=== PATIENT | female | born 1995 | race African-American/Black ===

== ENCOUNTER 2017-03-13 21:14 | Emergency (ER) | payer SELFPAY ==
[~2017-03-13] VITALS: Ht 154.9 cm; Wt 55.0 kg
[2017-03-13 21:16] VITALS: BP 109/77; PULSE 80; RESP 16; TEMP 98.5; O2SAT 100
[2017-03-13] MEDS ORDERED: SODIUM CHLOR 0.9% 1000 ML INJ 1,000 ML IV ONE (23:45)
[2017-03-13] MEDS ORDERED: ONDANSETRON HCL 4 MG/2 ML VIAL IV PUSH ONE (23:45)
--- NOTE | 2017-03-14 00:06 | RADRPT ---
EXAM DATE/TIME: 03/13/2017 23:44 [facility] COMPARISON: No previous studies available for comparison. INDICATIONS : Syncope post hit in head with volleyball. MEDICAL HISTORY : None. SURGICAL HISTORY : None. ENCOUNTER: Initial ACUITY: 1 day PAIN SCORE: 0/10 LOCATION: Bilateral chest FINDINGS: A single view of the chest demonstrates the lungs to be symmetrically aerated without evidence of mas s, infiltrate or effusion. The cardiomediastinal contours are unremarkable. Osseous structures are intact. CONCLUSION: Normal one view chest x-ray. Orion Clinton MD on March 14, 2017 at 0:04 Board Certified Radiologist. This report was verified electronically.
--- NOTE | 2017-03-14 00:10 | PD ---
HPI Chief Complaint: Headache Time Seen by Provider: 23:35 Travel History International Travel<30 days: No Contact w/Intl Traveler<30days: No Traveled to known affect area: No History of Present Illness HPI 22-year-old female here for evaluation of headache, dizziness, nausea, and a syncopal episode. The patient reports that she had a headache yesterday described as a pressure. She was then hit in the head with a volleyball. She did not lose consciousness after this head trauma. She states she took ibuprofen with improvement in head pain, however she persistently felt nauseous and lightheaded throughout the day today. This evening while at band practice she had a syncopal episode. She did not sustain any injuries from this episode. She reports history of syncopal episodes in high school from low blood pressure. She does not believe she is . No fevers or recent illness. No known history of cardiac disease. Currently she has moderate diffuse/throbbing head pain. No paresthesias or motor deficits. No neck pain. PFSH Past Medical History Anemia: Yes Immunizations Current: Yes Tetanus Vaccination: < 5 Years ?: Not LMP: 03/08/2017 Past Surgical History Surgical History: No Previous Surgery Social History Alcohol Use: No Tobacco Use: No Substance Use: No Allergies-Medications (Allergen,Severity, Reaction): Coded Allergies: No Known Allergies (Unverified , 03/13/17) Reported Meds & Prescriptions Reported Meds & Active Scripts Active Macrobid (Nitrofurantoin Monoh/Nitrofur Macro) 100 Mg Cap 100 Mg PO BID 5 Days Review of Systems Except as stated in HPI: all other systems reviewed are Neg Physical Exam Narrative GENERAL: Well-developed, well-nourished, awake, alert, GCS 15, no apparent distress. SKIN: Focused skin assessment warm/dry. HEAD: Atraumatic. Normocephalic. EYES: Pupils equal and round. No scleral icterus. No injection or drainage. ENT: Mucous membranes pink and moist. NECK: Trachea midline. No JVD. No midline cervical spinous step-off or tenderness. CARDIOVASCULAR: Regular rate and rhythm. No murmur appreciated. RESPIRATORY: No accessory muscle use. Clear to auscultation. Breath sounds equal bilaterally. GASTROINTESTINAL: Abdomen soft, non-tender, nondistended. MUSCULOSKELETAL: No obvious deformities. No clubbing. No cyanosis. No edema. NEUROLOGICAL: Awake and alert. No obvious cranial nerve deficits. Motor grossly within normal limits. Normal speech. No focal deficits. PSYCHIATRIC: Appropriate mood and affect; insight and judgment normal. Data Data Last Documented VS Vital Signs Date Time Temp Pulse Resp B/P (MAP) Pulse Ox O2 Delivery O2 Flow Rate FiO2 03/14/17 01:08 18 97 Room Air 03/13/17 21:16 98.5 80 Orders Orders Electrocardiogram (03/13/17 23:37) Basic Metabolic Panel (Bmp) (03/13/17 23:37) Ed Urine Pregnancytest Poc (03/13/17 23:37) Complete Blood Count With Diff (03/13/17 23:37) Urinalysis - C+S If Indicated (03/13/17 23:37) Chest, Single Ap (03/13/17 23:37) Ct Brain W/O Iv Contrast(Rout) (03/13/17 23:37) Ecg Monitoring (03/13/17 23:37) Iv Access Insert/Monitor (03/13/17 23:37) Oximetry (03/13/17 23:37) Ondansetron Inj (Zofran Inj) (03/13/17 23:45) Sodium Chlor 0.9% 1000 Ml Inj (Ns 1000 M (03/13/17 23:45) Urine Culture (03/14/17 00:10) Nitrofurantoin Monohyd Macrocr (Macrobid (03/14/17 01:00) Labs Laboratory Tests Test 03/14/17 00:10 White Blood Count 5.5 TH/MM3 Red Blood Count 5.37 MIL/MM3 Hemoglobin 14.7 GM/DL Hematocrit 43.9 % Mean Corpuscular Volume 81.8 FL Mean Corpuscular Hemoglobin 27.3 PG Mean Corpuscular Hemoglobin Concent 33.4 % Red Cell Distribution Width 16.2 % Platelet Count 278 TH/MM3 Mean Platelet Volume 9.3 FL Neutrophils (%) (Auto) 46.4 % Lymphocytes (%) (Auto) 44.1 % Monocytes (%) (Auto) 7.2 % Eosinophils (%) (Auto) 1.8 % Basophils (%) (Auto) 0.5 % Neutrophils # (Auto) 2.6 TH/MM3 Lymphocytes # (Auto) 2.4 TH/MM3 Monocytes # (Auto) 0.4 TH/MM3 Eosinophils # (Auto) 0.1 TH/MM3 Basophils # (Auto) 0.0 TH/MM3 CBC Comment DIFF FINAL Differential Comment Urine Color LIGHT-YELLOW Urine Turbidity CLEAR Urine pH 6.5 Urine Specific [place] 1.013 Urine Protein NEG mg/dL Urine Glucose (UA) NEG mg/dL Urine Ketones NEG mg/dL Urine Occult Blood TRACE Urine Nitrite NEG Urine Bilirubin NEG Urine Urobilinogen LESS THAN 2.0 MG/DL Urine Leukocyte Esterase SMALL Urine RBC LESS THAN 1 /hpf Urine WBC 3 /hpf Urine Squamous Epithelial Cells 3 /hpf Urine Bacteria MOD /hpf Urine Hyaline Casts 1 /lpf Microscopic Urinalysis Comment CULTURE INDICATED Blood Urea Nitrogen 13 MG/DL Creatinine 0.84 MG/DL Random Glucose 83 MG/DL Calcium Level 9.3 MG/DL Sodium Level 137 MEQ/L Potassium Level 3.6 MEQ/L Chloride Level 102 MEQ/L Carbon Dioxide Level 27.2 MEQ/L Anion Gap 8 MEQ/L Estimat Glomerular Filtration Rate 105 ML/MIN [facility] Medical Decision Making Medical Screen Exam Complete: Yes Emergency Medical Condition: Yes Interpretation(s) EKG: Sinus, rate 53, normal axis, normal intervals, no acute ischemic abnormality. Differential Diagnosis Syncope, dysrhythmia, head injury, concussion, intracranial trauma, metabolic abnormality Narrative Course Vital signs show heart rate 80, blood pressure 109/77, pulse ox 100% on room air , oral temp of 98.5F. CBC: WBC 5.5, hemoglobin 14.7, hematocrit 43.9, platelets 278. BMP is unremarkable. Urine is negative. UA: Trace blood, small leukocyte esterase, 3 WBCs, 3 epithelial cells, moderate bacteria, culture indicated. CT head: Negative noncontrast head CT. Patient will be started on Macrobid. She is feeling much better after receiving Zofran. She was made aware of all findings. She is resting comfortably. She is stable for discharge home with outpatient follow-up with a primary care physician this week. She was informed on when to return to the emergency department. She verbalizes understanding and agreement with plan. Diagnosis Primary Impression: Syncope Qualified Codes: R55 - Syncope and collapse Additional Impressions: Closed head injury Qualified Codes: S09.90XA - Unspecified injury of head, initial encounter UTI (urinary tract infection) Qualified Codes: N39.0 - Urinary tract infection, site not specified; R31.9 - Hematuria, unspecified Referrals: [facility] 3 days Primary Care Physician 3 days Additional Instructions: Follow-up with a primary care physician this week. Return to the emergency department for worsening symptoms or any other concerns. Scripts Nitrofurantoin Monohydrate Macrocrystals (Macrobid) 100 Mg Cap 100 MG PO BID for Infection for 5 Days, #10 CAP 0 Refills Prov: Ovi Azevedo MD 03/14/17 Disposition: 01 DISCHARGE HOME Condition: Stable Ovi Azevedo MD Mar 14, 2017 00:10
[2017-03-14 00:23] LABS: BACTERIA, URINE MOD /hpf; BLOOD, URINE TRACE (NEG); COMMENT (UR) CULTURE INDICATED; CULTURE IF INDICATED CULTURE INDICATED; GLUCOSE,URINE NEG (NEG); HYALINE CAST, URINE 1 /lpf (RARE); KETONE, URINE NEG (NEG); NITRITE,URINE NEG (NEG); PH, URINE 6.5 (5.0-8.5); SQUAMOUS EPITHELIAL CELL URINE 3 /hpf (0-5); URINE COLOR LIGHT-YELLOW (YELLW/STRAW)
[2017-03-14 00:24] LABS: AUTOMATED NEUTROPHIL # 2.6 TH/MM3 (1.8-7.7); BASOPHIL % 0.5 % (0.0-2.0); EOSINOPHIL # 0.1 TH/MM3 (0-0.4); EOSINOPHIL % 1.8 % (0.0-4.0); HEMATOCRIT 43.9 % (35.0-46.0); HEMO FLAGS DIFF FINAL; LYMPH % 44.1 % (9.0-44.0); LYMPHOCYTE # 2.4 TH/MM3 (1.0-4.8); MEAN CELL VOLUME 81.8 FL (80.0-100.0); MEAN CORPUSCULAR HEMOGLOBIN 27.3 PG (27.0-34.0); MEAN CORPUSCULAR HGB CONC 33.4 % (32.0-36.0); MONO % 7.2 % (0.0-8.0); NEUT % 46.4 % (16.0-70.0); PLATELET COUNT 278 TH/MM3 (150-450); RED BLOOD COUNT 5.37 MIL/MM3 (4.00-5.30); RED CELL DISTRIBUTION WIDTH 16.2 % (11.6-17.2); WHITE BLOOD COUNT 5.5 TH/MM3 (4.0-11.0)
[2017-03-14 00:49] LABS: BICARBONATE 27.2 MEQ/L (21.0-32.0); POTASSIUM 3.6 MEQ/L (3.5-5.1)
[2017-03-14] MEDS ORDERED: MACR100C2 PO (00:58)
[2017-03-14] MEDS ORDERED: NITROFURANTOIN MONOHYD MACROCR 100 MG CAP PO ONE (01:00)
[2017-03-14 01:08] VITALS: RESP 18; O2SAT 97
--- NOTE | 2017-03-14 01:37 | RADRPT ---
EXAM DATE/TIME: 03/14/2017 01:19 [facility] COMPARISON: No previous studies available for comparison. INDICATIONS : Hit in head with volleyball. RADIATION DOSE: 31.65 CTDIvol (mGy) MEDICAL HISTORY : None SURGICAL HISTORY : None. ENCOUNTER: Initial ACUITY: 1 day PAIN SCALE: 3/10 LOCATION: cranial TECHNIQUE: Multiple contiguous axial images were obtained of the head. Using automated exposure control and adj ustment of the mA and/or kV according to patient size, radiation dose was kept as low as reasonably a chievable to obtain optimal diagnostic quality images. DICOM format image data is available electro nically for review and comparison. FINDINGS: CEREBRUM: The ventricles are normal for age. No evidence of midline shift, mass lesion, hemorrhage or acute in farction. No extra-axial fluid collections are seen. POSTERIOR FOSSA: The cerebellum and brainstem are intact. The 4th ventricle is midline. The cerebellopontine angle i s unremarkable. EXTRACRANIAL: The visualized portion of the orbits is intact. SKULL: The calvaria is intact. No evidence of skull fracture. CONCLUSION: Negative noncontrast head CT. Orion Clinton MD on March 14, 2017 at 1:35 Board Certified Radiologist. This report was verified electronically.
--- NOTE | 2017-03-14 10:07 | EKG ---
Date Performed: 03/14/2017 Time Performed: 00:15:53 PTAGE: 22 years EKG: SINUS BRADYCARDIA BORDERLINE ECG NO PREVIOUS TRACING DOCTOR: Deshawn Kendrick Interpretating Date/Time 03/14/2017 10:05:15
== END 2017-03-14 02:00 | disposition home or self-care (01) ==
LOC: NEPD 21:14
DX: R55 Syncope and collapse (principal); S09.90XA Unspecified injury of head, initial encounter; N39.0 Urinary tract infection, site not specified; B96.20 Unspecified Escherichia coli [E. coli] as the cause of diseases classified elsewhere; R31.9 Hematuria, unspecified; W21.06XA Struck by volleyball, initial encounter
CPT/HCPCS: 70450; 71010; 80048; 81001; 84703; 85025; 87077; 87086; 87186; 93005; 96361; 96374; 99285; J2405; J7030

== ENCOUNTER 2017-06-29 21:25 | Emergency (ER) | payer SELFPAY ==
[~2017-06-29] VITALS: Ht 154.9 cm; Wt 62.0 kg
[~2017-06-29 21:25] MED LIST: MACR100C2 PO
[2017-06-29 21:26] VITALS: BP 114/69; PULSE 77; RESP 16; TEMP 97.9; O2SAT 99
[2017-06-29] MEDS ORDERED: PROPARACAINE HCL 0.5% OPHT SOLN 15 ML BTL EACH EYE ONE (23:00)
[2017-06-29] MEDS ORDERED: DICL0.1S EACH EYE (23:09)
[2017-06-29] MEDS ORDERED: AK-T0.3S RIGHT EYE (23:09)
--- NOTE | 2017-06-29 23:22 | PD ---
HPI Chief Complaint: Eye Problems/Injury Time Seen by Provider: 22:47 Travel History International Travel<30 days: No Contact w/Intl Traveler<30days: No Traveled to known affect area: No History of Present Illness HPI 22-year-old black female presents emergency Department with complaints of right eye pain and swelling. She states that she normally wears contacts but stopped wearing them last week because she felt she looked better and glasses with certain outfits that she's been wearing. She states that she started getting some discomfort in her right eye earlier today. It has progressively worsened. She has been rubbing her eye. She is noting her eyelid to be swollen. Slight photophobia. Positive tearing. Slight foreign body sensation. No diplopia, matting, direct trauma. Recent illness. PFSH Past Medical History Anemia: Yes Immunizations Current: Yes Tetanus Vaccination: < 5 Years ?: Not Past Surgical History Surgical History: No Previous Surgery Social History Alcohol Use: No Tobacco Use: No Substance Use: No Allergies-Medications (Allergen,Severity, Reaction): Coded Allergies: No Known Allergies (Unverified , 03/13/17) Reported Meds & Prescriptions Reported Meds & Active Scripts Active Tobramycin Opth Drops 0.3 % Soln 1 Drop RIGHT EYE Q6H Diclofenac Opth Drops 0.1% Soln 1 Drop EACH EYE QID Macrobid (Nitrofurantoin Monoh/Nitrofur Macro) 100 Mg Cap 100 Mg PO BID 5 Days Review of Systems General / Constitutional: No: Fever Eyes: Positive: Photophobia, Redness, Foreign Body Sensation, Pain, Tearing, No : Diploplia, Blurred Vision, Drainage, Visual changes HENT: No: Headaches Cardiovascular: No: Chest Pain or Discomfort Respiratory: No: Shortness of Breath Gastrointestinal: No: Abdominal Pain Genitourinary: No: Dysuria Musculoskeletal: No: Pain Skin: No Rash Neurologic: No: Weakness Psychiatric: No: Depression Endocrine: No: Polydipsia Hematologic/Lymphatic: No: Easy Bruising Physical Exam Narrative GENERAL: Well-developed, well-nourished in no acute distress. Nontoxic appearing. HEAD: Normocephalic, atraumatic. EYES: Pupils equal round and reactive. Extraocular motions intact. No scleral icterus. No injection or drainage in the left eye. The right eye has clear tearing. There is mild edema of the upper eyelid. Lids are flipped and no foreign body seen. Alcaine is instilled in the right eye with resolution of pain. Fluorescein stain is negative for corneal abrasion, ulcer or foreign body. Visual acuity is noted on the nursing chart. ENT: TMs clear without erythema. The external auditory canals clear. Nose: clear . Posterior pharynx is pink and moist. No tonsillar edema or exudate. Uvula midline. Airway patent. NECK: Trachea midline.Supple, nontender, moves head freely. No central bony tenderness or spasm. CARDIOVASCULAR: Regular rate and rhythm without murmurs, gallops, or rubs. RESPIRATORY: Clear to auscultation. Breath sounds equal bilaterally. No wheezes , rales, or rhonchi. GASTROINTESTINAL: Abdomen soft, non-tender, nondistended. No hepato-splenomegaly , or palpable masses. No guarding. EXTREMITIES: No clubbing, cyanosis, or edema. No joint tenderness, effusion, or edema noted. BACK: Nontender without deformity or crepitance. No flank tenderness. Data Data Last Documented VS Vital Signs Date Time Temp Pulse Resp B/P (MAP) Pulse Ox O2 Delivery O2 Flow Rate FiO2 06/29/17 21:26 97.9 77 16 114/69 (84) 99 Room Air Orders Orders Proparacaine 0.5% Opth Soln (Alcaine 0.5 (06/29/17 23:00) Ed Discharge Order (06/29/17 23:09) [facility] Medical Decision Making Medical Screen Exam Complete: Yes Emergency Medical Condition: Yes Medical Record Reviewed: Yes Interpretation(s) Right eye: 20/100, left eye 20/20, both eyes 20/20. Differential Diagnosis MDM: High Differential diagnoses: Acute conjunctivitis (bacterial, viral, allergic, traumatic), glaucoma, iritis, traumatic globe injury, foreign body, corneal abrasion, corneal ulcer, diabetic retinopathy, photokeratitis, herpes keratitis , CMV retinitis Narrative Course Patient's eye exam is unremarkable for foreign body or obvious infection. The patient will be treated for iritis and will also be covered for possible conjunctivitis. This is right I iritis Diagnosis Primary Impression: Acute iritis, right eye Referrals: Mikaela Chun MD 3 days Patient Instructions: General Instructions Additional Instructions: Rest. Wash eyelashes with baby shampoo. Tobramycin ophthalmic drops Diclofenac ophthalmic drops. Follow-up with an eye doctor in the next 2-3 days for recheck. Return to the ER if any problems. Do not wear contacts still released by your eye doctor. Med/Other Pt SpecificInfo: Prescription(s) given Scripts Tobramycin Opth Drops (Tobramycin Opth Drops) 0.3 % Soln 1 DROP RIGHT EYE Q6H for Infection, #1 BOTTLE 0 Refills Prov: Ovi Azevedo MD 06/29/17 Diclofenac Opth Drops (Diclofenac Opth Drops) 0.1% Soln 1 DROP EACH EYE QID for Pain Management, #2.5 ML 0 Refills Prov: Ovi Azevedo MD 06/29/17 Disposition: 01 DISCHARGE HOME Condition: Stable Lucas Piña Jun 29, 2017 23:22
== END 2017-06-29 23:22 | disposition home or self-care (01) ==
LOC: NEPD 21:25
DX: H20.00 Unspecified acute and subacute iridocyclitis (principal); H53.149 Visual discomfort, unspecified; Z86.2 Personal history of diseases of the blood and blood-forming organs and certain disorders involving the immune mechanism
CPT/HCPCS: 99284

== ENCOUNTER 2018-05-14 21:53 | Inpatient (IN) ==
[2018-05-14] MEDS ORDERED: Sod Chloride 0.9% Inj 1,000 ML IV.SIG ONE (22:33)
--- NOTE | 2018-05-14 22:51 | XR ---
EXAM DATE: 05/14/2018 10:48 PM EST AGE/SEX: 23 years / Female INDICATIONS: Medical clearance. Patient states she came in for "self-harm". CLINICAL DATA: This is the patient's initial encounter. Patient reports that signs and symptoms have been present for 1 day and indicates a pain score of 0/10. MEDICAL/SURGICAL HISTORY: None. None. COMPARISON: [facility] [place], CHEST SINGLE AP, 03/13/2017. . FINDINGS: A single AP view of the chest demonstrates the lungs to be symmetrically aerated without evidence of mass, infiltrate or effusion. The cardiomediastinal contours are unremarkable. Osseous structures a re intact. CONCLUSION: No evidence of acute cardiopulmonary disease. Electronically signed by: Orion Clinton MD 05/14/2018 10:50 PM EST
[2018-05-14 23:01] LABS: Baso % (Auto) 0.8 % (0.0-2.0); Eos # (Auto) 0.1 th/mm3 (0.0-0.4); Eos % (Auto) 2.1 % (0.0-4.0); Hematocrit 41.9 % (35.0-46.0); Lymph # (Auto) 1.9 th/mm3 (1.0-4.8); Lymph % (Auto) 37.4 % (9.0-44.0); Mean Corpuscular HGB Conc 33.5 % (32.0-36.0); Mean Corpuscular Volume 80.7 fL (80.0-100.0); Mean Platelet Volume 9.3 fL (7.0-11.0); Mono # (Auto) 0.4 th/mm3 (0.0-0.9); Mono % (Auto) 8.3 % (0.0-8.0); Neut # (Auto) 2.6 th/mm3 (1.8-7.7); Neut % (Auto) 51.4 % (16.0-70.0); Platelet Count 283 th/mm3 (150-450); Red Blood Count 5.19 mil/mm3 (4.00-5.30); Red Cell Distribution Width 16.2 % (11.6-17.2); White Blood Count 5.1 th/mm3 (4.0-11.0)
[2018-05-14 23:09] LABS: Activated Partial Thrombo Time 26.6 sec (23.4-31.7); Prothrombin Time 10.5 sec (9.8-11.6)
[2018-05-14 23:14] LABS: Alanine Aminotransferase 20 U/L (10-53); Albumin 4.3 g/dL (3.4-5.0); Anion Gap 6 meq/L (5-15); Aspartate Aminotransferase 17 U/L (15-37); Blood Urea Nitrogen 12 mg/dL (7-18); Calcium 8.6 mg/dL (8.5-10.1); Carbon Dioxide 29.3 meq/L (21.0-32.0); Chloride 104 meq/L (98-107); Glomerular Filtration Rate 71 mL/min (>89); Glucose,Random 121 mg/dL (74-106); Lipase 103 U/L (73-393); Magnesium 2.2 mg/dL (1.5-2.5); Potassium 3.7 meq/L (3.5-5.1); Sodium 139 meq/L (136-145)
[2018-05-14 23:17] LABS: Alkaline Phosphatase 82 U/L (45-117); Total Protein 9.5 g/dL (6.4-8.2)
[2018-05-14 23:18] LABS: Creatine Kinase 84 U/L (26-192)
--- NOTE | 2018-05-14 23:39 | ED ---
HPI General Chief complaint: Overdose Stated complaint: med clearance Time Seen by Provider: 05/14/18 22:31 Source: patient Mode of arrival: ambulatory Limitations: no limitations History of Present Illness HPI narrative: The patient is a 23 year old female who presents to the [facility] emergency department with a history of intentionally overdosing on Benadryl at approximately 6 PM tonight. The patient reports that she took 13 tablets. She is unsure of the dose of each Benadryl tablet. She reports that since then she has developed some dizziness. Out in triage, the patient was also complaining of some medial chest burning that was 3 out of 10. She denies having any chest pain at this time. She reports that she has a history of being diagnosed with major depression and anxiety disorder. She is followed by a psychiatrist, Dr. Franklin as an outpatient and is also in counseling. She reports having increased problems with depression recently and Wellbutrin was added to her regimen a few days ago. She is also on Lexapro. The patient reports that throughout the day today she has had increasing bad thoughts with thoughts of harming herself up until she intentionally took the Benadryl overdose. She denies ever attempting suicide previously. On review of systems otherwise, the patient denies having any known recent fevers, cough, congestion , neck pain, shortness of breath, abdominal pain, vomiting, diarrhea, urinary symptoms, or other neurologic symptoms. LMP: May 07, 2018. Related Data Home Medications Medication Instructions Recorded Confirmed escitalopram oxalate [Lexapro] 20 mg PO DAILY 03/06/18 05/14/18 bupropion HCl [Wellbutrin SR] 100 mg PO DAILY 05/14/18 05/14/18 Allergies Allergy/AdvReac Type Severity Reaction Status Date / Time lactose Allergy Hives Verified 05/14/18 22:08 Review of Systems ROS: all other systems reviewed are negative [facility] Medical History Medical History Anemia (Acute) Anxiety (Acute) Depression (Acute) Hypotension (Acute) Surgical History Surgical History No history of previous surgery (Acute) Social History Social History Substance History: No History of Abuse Second Hand Smoke Exposure: No Smoking Status: Never smoker How Often Do You Have a Drink Containing Alcohol: 2 to 4 times a month Recent Travel in [facility] within the Last 8 Weeks: No Recent Out of Country Travel within the Last 8 Weeks: No Immunization History Tetanus Immunization: >5 Years Exam [facility] Head: normocephalic and atraumatic Nose: no nasal discharge and no epistaxis Mouth: moist mucous membranes Eyes Sclera: normal sclerae Pupils: PERRL Neck Neck: trachea midline and no JVD Resp Effort & Inspection: no use of accessory muscles Auscultation: clear to auscultation bilaterally Cardio Rate: regular rate Rhythm: regular rhythm Heart Sounds: no murmurs GI Inspection: non-distended Palpation: soft, no hepatosplenomegaly and nontender Skin General: dry skin (warm) Neuro General: alert and awake Cranial Nerves: other Speech: speech normal Motor: no movement abnormalities noted Extrem General: normal to inspection, no clubbing, no cyanosis and no edema Psych Mood: dysthymic mood Affect: blunted Thought Content: no homicidality and suicidality Judgment: limited Course Initial Documented Vital Signs Temperature 98.9 F 05/14/18 22:05 Pulse Rate 106 H 05/14/18 22:05 Respiratory Rate 18 05/14/18 22:05 Blood Pressure 113/69 05/14/18 22:05 Pulse Oximetry 98 05/14/18 22:05 Last Documented Vital Signs Temperature 98.9 F 05/14/18 22:05 Pulse Rate 65 05/15/18 06:39 Respiratory Rate 14 05/15/18 06:39 Blood Pressure 101/69 05/15/18 06:39 Pulse Oximetry 99 05/15/18 06:39 Medical Decision Making [facility] Narrative Medical decision making narrative: During the course of the patient's emergency department visit, the patient's history, examination, and differential diagnosis were reviewed with the patient. The patient was placed on a grey tender with oximetry and frequent blood pressure monitoring. The patient had IV access obtained and blood work sent for analysis. Diagnostic evaluation was started regarding this patient's intentional Benadryl overdose. The patient had a Singh act written due to concern for her safety. The patient was initially provided normal saline 1 L IV fluid bolus. The patient's diagnostic studies are remarkable for a white count of 5.1, hemoglobin 14, platelets 283 with 8.3 monocytes, Chemistry is remarkable for a creatinine of 1.17, glucose 121, serum osmolality 300, cardiac enzymes within normal limits, total protein 9.3, lipase within normal limits, PT PTT within normal limits, urinalysis shows trace occult blood small leukocyte esterase moderate bacteria, culture indicated. Salicylate is less than 1.7, acetaminophen less than 2, serum alcohol level is less than 3. A chest x-ray shows no acute abnormality. Repeat EKG was done and showed a sinus bradycardia heart rate of 58, QRS duration 77 ms, QTC [address] segment elevation, T waves are inverted in lead III, V1, V2, V3. The patient has been medically cleared for evaluation by the psychiatric screener and psychiatrist under a Singh act. The patient has remained asymptomatic during her emergency department visit regarding any type of anticholinergic syndrome. Medical Screen Exam Complete: Yes Emergency Medical Condition: Yes Differential Diagnosis Differential Diagnosis: Depression with suicidal ideations, versus substance- induced mood disorder, versus suicidal gesture Medical Records Medical records reviewed: Yes I reviewed the patient's medical records. Lab Data Lab results reviewed: Yes I reviewed the patient's lab results. 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 Differential Comment Auto diff final PT 10.5 (9.8-11.6) sec INR 1.0 Ratio APTT 26.6 (23.4-31.7) sec Sodium 139 (136-145) meq/L Potassium 3.7 (3.5-5.1) meq/L Chloride 104 (98-107) meq/L Carbon Dioxide 29.3 (21.0-32.0) meq/L Anion Gap 6 (5-15) meq/L BUN 12 (7-18) mg/dL Creatinine 1.17 H (0.50-1.00) mg/dL Estimated GFR 71 L (>89) mL/min Random Glucose 121 H (74-106) mg/dL Osmolality 300 H (275-295) mosm/kg Calcium 8.6 (8.5-10.1) mg/dL Magnesium 2.2 (1.5-2.5) mg/dL Total Bilirubin 0.6 (0.2-1.0) mg/dL AST 17 (15-37) U/L ALT 20 (10-53) U/L Alkaline Phosphatase 82 (45-117) U/L Total Creatine Kinase 84 (26-192) U/L Troponin I Less than 0.02 L (0.02-0.05) ng/mL Total Protein 9.5 H (6.4-8.2) g/dL Albumin 4.3 (3.4-5.0) g/dL Lipase 103 (73-393) U/L Urine Color (Yellw/Straw) Urine Clarity (Clear) Urine pH (5.0-8.5) Ur Specific [place] (1.002-1.035) Urine Protein (Neg-Trace) mg/dL Urine Glucose (UA) (Negative) mg/dL Urine Ketones (Negative) mg/dL Urine Occult Blood (Negative) Urine Nitrate (Negative) Urine Bilirubin (Negative) Urine Urobilinogen (Less than 2) mg/dL Ur Leukocyte Esterase (Negative) Urine WBC (0-5) /hpf Ur Squamous Epith Cells (0-5) /hpf Urine Bacteria (None) /hpf Urine Mucus (Occasional) /lpf Micro UA Comment Ur Microscopic Review Urine Culture Comments Urine Osmolality (300-1300) mosm/kg Salicylates (2.8-20.0) mg/dL Urine Opiates Screen (Neg) Acetaminophen Less than 2.0 L (10.0-30.0) mcg/mL Ur Barbiturates Screen (Neg) Ur Amphetamines Screen (Neg) U Benzodiazepines Scrn (Neg) Urine Cocaine Screen (Neg) U Cannabinoids Screen (Neg) Serum Alcohol Less than 3 (0-5) mg/dL 05/14/18 05/15/18 05/15/18 Range/Units 22:45 05:14 05:14 WBC (4.0-11.0) th/mm3 RBC (4.00-5.30) mil/mm3 Hgb (11.6-15.3) gm/dL Hct (35.0-46.0) % MCV (80.0-100.0) fL MCH (27.0-34.0) pg MCHC (32.0-36.0) % RDW (11.6-17.2) % Plt Count (150-450) th/mm3 MPV (7.0-11.0) fL Prelim Diff (Auto) Neut % (Auto) (16.0-70.0) % Lymph % (Auto) (9.0-44.0) % [place] % (Auto) (0.0-8.0) % Eos % (Auto) (0.0-4.0) % Baso % (Auto) (0.0-2.0) % Neut # (Auto) (1.8-7.7) th/mm3 Lymph # (Auto) (1.0-4.8) th/mm3 [place] # (Auto) (0.0-0.9) th/mm3 Eos # (Auto) (0.0-0.4) th/mm3 Baso # (Auto) (0.0-0.2) th/mm3 WBC Differential Differential Comment PT (9.8-11.6) sec INR Ratio APTT (23.4-31.7) sec Sodium (136-145) meq/L Potassium (3.5-5.1) meq/L Chloride (98-107) meq/L Carbon Dioxide (21.0-32.0) meq/L Anion Gap (5-15) meq/L BUN (7-18) mg/dL Creatinine (0.50-1.00) mg/dL Estimated GFR (>89) mL/min Random Glucose (74-106) mg/dL Osmolality (275-295) mosm/kg Calcium (8.5-10.1) mg/dL Magnesium (1.5-2.5) mg/dL Total Bilirubin (0.2-1.0) mg/dL AST (15-37) U/L ALT (10-53) U/L Alkaline Phosphatase (45-117) U/L Total Creatine Kinase (26-192) U/L Troponin I (0.02-0.05) ng/mL Total Protein (6.4-8.2) g/dL Albumin (3.4-5.0) g/dL Lipase (73-393) U/L Urine Color (Yellw/Straw) Urine Clarity (Clear) Urine pH (5.0-8.5) Ur Specific [place] (1.002-1.035) Urine Protein (Neg-Trace) mg/dL Urine Glucose (UA) (Negative) mg/dL Urine Ketones (Negative) mg/dL Urine Occult Blood (Negative) Urine Nitrate (Negative) Urine Bilirubin (Negative) Urine Urobilinogen (Less than 2) mg/dL Ur Leukocyte Esterase (Negative) Urine WBC (0-5) /hpf Ur Squamous Epith Cells (0-5) /hpf Urine Bacteria (None) /hpf Urine Mucus (Occasional) /lpf Micro UA Comment Ur Microscopic Review Urine Culture Comments Urine Osmolality 343 (300-1300) mosm/kg Salicylates Less than 1.7 L (2.8-20.0) mg/dL Urine Opiates Screen Neg (Neg) Acetaminophen (10.0-30.0) mcg/mL Ur Barbiturates Screen Neg (Neg) Ur Amphetamines Screen Neg (Neg) U Benzodiazepines Scrn Neg (Neg) Urine Cocaine Screen Neg (Neg) U Cannabinoids Screen Neg (Neg) Serum Alcohol (0-5) mg/dL 05/15/18 Range/Units 05:14 WBC (4.0-11.0) th/mm3 RBC (4.00-5.30) mil/mm3 Hgb (11.6-15.3) gm/dL Hct (35.0-46.0) % MCV (80.0-100.0) fL MCH (27.0-34.0) pg MCHC (32.0-36.0) % RDW (11.6-17.2) % Plt Count (150-450) th/mm3 MPV (7.0-11.0) fL Prelim Diff (Auto) Neut % (Auto) (16.0-70.0) % Lymph % (Auto) (9.0-44.0) % [place] % (Auto) (0.0-8.0) % Eos % (Auto) (0.0-4.0) % Baso % (Auto) (0.0-2.0) % Neut # (Auto) (1.8-7.7) th/mm3 Lymph # (Auto) (1.0-4.8) th/mm3 [place] # (Auto) (0.0-0.9) th/mm3 Eos # (Auto) (0.0-0.4) th/mm3 Baso # (Auto) (0.0-0.2) th/mm3 WBC Differential Differential Comment PT (9.8-11.6) sec INR Ratio APTT (23.4-31.7) sec Sodium (136-145) meq/L Potassium (3.5-5.1) meq/L Chloride (98-107) meq/L Carbon Dioxide (21.0-32.0) meq/L Anion Gap (5-15) meq/L BUN (7-18) mg/dL Creatinine (0.50-1.00) mg/dL Estimated GFR (>89) mL/min Random Glucose (74-106) mg/dL Osmolality (275-295) mosm/kg Calcium (8.5-10.1) mg/dL Magnesium (1.5-2.5) mg/dL Total Bilirubin (0.2-1.0) mg/dL AST (15-37) U/L ALT (10-53) U/L Alkaline Phosphatase (45-117) U/L Total Creatine Kinase (26-192) U/L Troponin I (0.02-0.05) ng/mL Total Protein (6.4-8.2) g/dL Albumin (3.4-5.0) g/dL Lipase (73-393) U/L Urine Color Yellow (Yellw/Straw) Urine Clarity Clear (Clear) Urine pH 6.0 (5.0-8.5) Ur Specific [place] 1.006 (1.002-1.035) Urine Protein Negative (Neg-Trace) mg/dL Urine Glucose (UA) Negative (Negative) mg/dL Urine Ketones Negative (Negative) mg/dL Urine Occult Blood Negative (Negative) Urine Nitrate Negative (Negative) Urine Bilirubin Negative (Negative) Urine Urobilinogen Less than 2 (Less than 2) mg/dL Ur Leukocyte Esterase Trace H (Negative) Urine WBC 2 (0-5) /hpf Ur Squamous Epith Cells <1 (0-5) /hpf Urine Bacteria Few H (None) /hpf Urine Mucus Few H (Occasional) /lpf Micro UA Comment Culture not ind Ur Microscopic Review Not Reportable Urine Culture Comments Culture not ind Urine Osmolality (300-1300) mosm/kg Salicylates (2.8-20.0) mg/dL Urine Opiates Screen (Neg) Acetaminophen (10.0-30.0) mcg/mL Ur Barbiturates Screen (Neg) Ur Amphetamines Screen (Neg) U Benzodiazepines Scrn (Neg) Urine Cocaine Screen (Neg) U Cannabinoids Screen (Neg) Serum Alcohol (0-5) mg/dL Imaging Data Radiologist's impression: Chest X-Ray 05/14/18 22:33 CONCLUSION: No evidence of acute cardiopulmonary disease. ECG Data Attestation: I personally reviewed and interpreted this ECG as follows: Interpretation: The patient had an EKG done on arrival that shows a sinus tachycardia rate of 100, QRS duration 86 ms, QTC [address] segment elevation, T waves are inverted in lead III, V1, V2, V3. Discharge Plan Discharge Disposition Patient Disposition: ED Admit(ED Internal Use Only) Discharge Details Diagnosis: Drug overdose Physicians Team ED Provider: Debbie Marks Primary Care Provider: Primary Care Physici,No Rxs /Orders / Referrals /Forms Prescriptions: No Action escitalopram oxalate [Lexapro] 5 mg Tablet 20 mg PO DAILY RF: 0 bupropion HCl [Wellbutrin SR] 100 mg Tablet Sustained-Release 12 Hr 100 mg PO DAILY RF: 0 Discharge Interventions Interventions: Vital Signs Last Done: 05/15/18 06:39 Status ED Status: Medically Cleared
[2018-05-15] MEDS ORDERED: Sod Chloride 0.9% Inj 1,000 ML IV.SIG ONE (01:02)
[2018-05-15 05:33] LABS: Amphetamine Screen,Urine Neg (Neg); Barbiturate Screen,Urine Neg (Neg); Cannabinoid Screen,Urine Neg (Neg); Cocaine Screen,Urine Neg (Neg)
[2018-05-15 05:41] LABS: Opiate Screen,Urine Neg (Neg)
[2018-05-15 05:48] LABS: Bacteria,Urine Few /hpf; Bilirubin,Urine Negative (Negative); Clarity,Urine Clear (Clear); Color,Urine Yellow (Yellw/Straw); Glucose,Urine (UA) Negative (Negative); Leukocyte Esterase,Urine Trace (Negative); Mucus,Urine Few /lpf (Occasional); Nitrite,Urine Negative (Negative); Specific Gravity,Urine 1.006 (1.002-1.035); Squamous Epithelial Cell,Urine <1 /hpf (0-5)
[2018-05-15] MEDS ORDERED: Aluminum/Magnesium/Simethacone Susp 30 ML UDC PO PRN (14:44)
--- NOTE | 2018-05-15 15:06 | ED ---
HPI - Psych - General Source: patient Mode of arrival: ambulatory Limitations: no limitations - History of Present Illness MD complaint: suicidal ideation, feels depressed Onset (ago): week(s) Duration: intermittent History of same: Yes Relieving factors: medication, therapy Exacerbating factors: medication Context: new medication(s) (wellbutrin) Associated psychiatric symptoms: suicidal ideation Associated symptoms: denies other symptoms Treatments prior to arrival: none If self harm: intentional overdose (bendadryl) - General Chief Complaint: Overdose Stated Complaint: med clearance Time Seen by Provider: 05/14/18 22:31 - History of Present Illness HPI Narrative: This is a 23-year-old female who presented voluntarily to the ED reporting that she had taken an intentional OD of 13 Benadryl tablets in an effort to end her life. Patient is known to this facility but not to this department. Reviewed electronic medical record, labs, and discussed case with staff. Patient was examined in her room in C pod. She is found to be awake, alert, and oriented X 4. She is neatly groomed and dressed in a hospital gown. Her speech is clear, logical, organized, of normal teresa and volume. She presently is denying SI, HI, and AVH. There is no indication of nhan nor psychosis. I can elicit no delusional material. 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 She reports that her grades currently are "mostly C's with a few A's". She lives off campus by herself. Her family is in [place]. She reports that she had one previous inpatient admission approximately one year ago at [facility] ( [facility]) and follows up outpatient with Dr. Franklin. She reports that she is compliant with her medications and therapy. She states that due to increased problems with depression she recently had Wellbutrin added to her Lexapro. Patient reports that she began having bad thoughts until she was "consumed by all of the bad thoughts" which resulted in her suicide attempt. She does endorse recent insomnia, fluctuating appetite, anhedonia, lethargy, and difficulty concentrating. She denies smoking cigarettes or using illicit substances but does endorse drinking socially. She reports that her mother also has diagnoses of MDD and anxiety. (Marie Hanson) - Related Data Home Medications Medication Instructions Recorded Confirmed escitalopram oxalate [Lexapro] 20 mg PO DAILY 03/06/18 05/14/18 bupropion HCl [Wellbutrin SR] 100 mg PO DAILY 05/14/18 05/14/18 Allergies Allergy/AdvReac Type Severity Reaction Status Date / Time lactose Allergy Hives Verified 05/14/18 22:08 Review of Systems All other systems reviewed negative except as stated in HPI [facility] - History History Provided By: Patient - Medical History Medical History: Medical History (Last Reviewed 05/15/18 @ 15:17 by BRITTANY Lees) Anemia Anxiety Depression Hypotension - Surgical History Surgical History: Surgical History (Last Reviewed 05/15/18 @ 15:04 by BRITTANY Lees) No history of previous surgery - Tobacco History Second Hand Smoke Exposure: No Smoking Status: Never smoker - Alcohol History How Often Do You Have a Drink Containing Alcohol: 2 to 4 times a month - Substance Use History Substance History: No History of Abuse - Travel History Recent Travel in the [facility] Within the Last 8 Weeks: No Recent Travel Out of the Country Within the Last 8 Weeks: No - Immunization History Tetanus Immunization: >5 Years Psychiatric History - Psychiatric History Psychiatric Treatment History: History of Psychiatric Treatment, History of Hospitalization in a Psychiatric Facility History of Inpatient Treatment: Yes Firearms in Home: No Physical Exam - General Limitations: no limitations General appearance: alert, in no apparent distress - Head Head exam: atraumatic, normocephalic - Eye Eye exam: Present: normal appearance - ENT ENT exam: Present: normal exam - Neurological Exam Neurological exam: Present: alert, oriented X3 - Psychiatric Psychiatric exam: Present: anxious - Skin Skin exam: Present: warm, dry, intact Mental Status Examination Appearance: Appropriate, Well dressed/well groomed Consciousness: Alert Orientation: x4 Motor Activity: Normal gait Speech: Unremarkable Language: Adequate Fund of Knowledge: Adequate Attention and Concentration: Adequate Memory: Unremarkable Mood: Sad, Anxious Affect: Sad, Anxious Thought Process & Associations: Intact, Logical Thought Content: Appropriate Hallucination Type: None Delusion Type: None Suicidal Ideation: No Suicidal Plan: No Suicidal Intention: No Homicidal Ideation: No Homicidal Plan: No Homicidal Intention: No Insight: Fair Judgment: Impulsive Initial Documented Vital Signs Temperature 98.9 F 05/14/18 22:05 Pulse Rate 106 H 05/14/18 22:05 Respiratory Rate 18 05/14/18 22:05 Blood Pressure 113/69 05/14/18 22:05 Pulse Oximetry 98 05/14/18 22:05 Last Documented Vital Signs Temperature 98.9 F 05/14/18 22:05 Pulse Rate 65 05/15/18 06:39 Respiratory Rate 14 05/15/18 06:39 Blood Pressure 101/69 05/15/18 06:39 Pulse Oximetry 99 05/15/18 06:39 MDM - Psych - Diagnosis (1) MDD (major depressive disorder) Status: Acute (2) Suicide attempt Status: Acute - Lab Data Result diagrams: 05/14/18 22:45 05/14/18 22:45 - MDM Narrative Medical decision making narrative: Given the patient's reported suicide attempt as well as her ongoing depression and medication adjustments I am admitting her to locked inpatient unit for further evaluation and treatment as deemed necessary. Continued her Lexapro and consents are signed. (Marie Hanson) - Lab Data POC Results POC Urine Results Negative Lab Results 05/14/18 05/14/18 05/14/18 Range/Units 22:45 22:45 22:45 WBC 5.1 (4.0-11.0) th/mm3 RBC 5.19 (4.00-5.30) mil/mm3 Hgb 14.0 (11.6-15.3) gm/dL Hct 41.9 (35.0-46.0) % MCV 80.7 (80.0-100.0) fL MCH 27.0 (27.0-34.0) pg MCHC 33.5 (32.0-36.0) % RDW 16.2 (11.6-17.2) % Plt Count 283 (150-450) th/mm3 MPV 9.3 (7.0-11.0) fL Prelim Diff (Auto) Stove Tender Neut % (Auto) 51.4 (16.0-70.0) % Lymph % (Auto) 37.4 (9.0-44.0) % Eaton % (Auto) 8.3 H (0.0-8.0) % Eos % (Auto) 2.1 (0.0-4.0) % Baso % (Auto) 0.8 (0.0-2.0) % Neut # (Auto) 2.6 (1.8-7.7) th/mm3 Lymph # (Auto) 1.9 (1.0-4.8) th/mm3 Eaton # (Auto) 0.4 (0.0-0.9) th/mm3 Eos # (Auto) 0.1 (0.0-0.4) th/mm3 Baso # (Auto) 0.0 (0.0-0.2) th/mm3 WBC Differential . Differential Comment Auto diff final PT 10.5 (9.8-11.6) sec INR 1.0 Ratio APTT 26.6 (23.4-31.7) sec Sodium 139 (136-145) meq/L Potassium 3.7 (3.5-5.1) meq/L Chloride 104 (98-107) meq/L Carbon Dioxide 29.3 (21.0-32.0) meq/L Anion Gap 6 (5-15) meq/L BUN 12 (7-18) mg/dL Creatinine 1.17 H (0.50-1.00) mg/dL Estimated GFR 71 L (>89) mL/min Random Glucose 121 H (74-106) mg/dL Osmolality 300 H (275-295) mosm/kg Calcium 8.6 (8.5-10.1) mg/dL Magnesium 2.2 (1.5-2.5) mg/dL Total Bilirubin 0.6 (0.2-1.0) mg/dL AST 17 (15-37) U/L ALT 20 (10-53) U/L Alkaline Phosphatase 82 (45-117) U/L Total Creatine Kinase 84 (26-192) U/L Troponin I Less than 0.02 L (0.02-0.05) ng/mL Total Protein 9.5 H (6.4-8.2) g/dL Albumin 4.3 (3.4-5.0) g/dL Lipase 103 (73-393) U/L Urine Color (Yellw/Straw) Urine Clarity (Clear) Urine pH (5.0-8.5) Ur Specific Waldron (1.002-1.035) Urine Protein (Neg-Trace) mg/dL Urine Glucose (UA) (Negative) mg/dL Urine Ketones (Negative) mg/dL Urine Occult Blood (Negative) Urine Nitrate (Negative) Urine Bilirubin (Negative) Urine Urobilinogen (Less than 2) mg/dL Ur Leukocyte Esterase (Negative) Urine WBC (0-5) /hpf Ur Squamous Epith Cells (0-5) /hpf Urine Bacteria (None) /hpf Urine Mucus (Occasional) /lpf Micro UA Comment Ur Microscopic Review Urine Culture Comments Urine Osmolality (300-1300) mosm/kg Salicylates (2.8-20.0) mg/dL Urine Opiates Screen (Neg) Acetaminophen Less than 2.0 L (10.0-30.0) mcg/mL Ur Barbiturates Screen (Neg) Ur Amphetamines Screen (Neg) U Benzodiazepines Scrn (Neg) Urine Cocaine Screen (Neg) U Cannabinoids Screen (Neg) Serum Alcohol Less than 3 (0-5) mg/dL 05/14/18 05/15/18 05/15/18 Range/Units 22:45 05:14 05:14 WBC (4.0-11.0) th/mm3 RBC (4.00-5.30) mil/mm3 Hgb (11.6-15.3) gm/dL Hct (35.0-46.0) % MCV (80.0-100.0) fL MCH (27.0-34.0) pg MCHC (32.0-36.0) % RDW (11.6-17.2) % Plt Count (150-450) th/mm3 MPV (7.0-11.0) fL Prelim Diff (Auto) Neut % (Auto) (16.0-70.0) % Lymph % (Auto) (9.0-44.0) % Eaton % (Auto) (0.0-8.0) % Eos % (Auto) (0.0-4.0) % Baso % (Auto) (0.0-2.0) % Neut # (Auto) (1.8-7.7) th/mm3 Lymph # (Auto) (1.0-4.8) th/mm3 Eaton # (Auto) (0.0-0.9) th/mm3 Eos # (Auto) (0.0-0.4) th/mm3 Baso # (Auto) (0.0-0.2) th/mm3 WBC Differential Differential Comment PT (9.8-11.6) sec INR Ratio APTT (23.4-31.7) sec Sodium (136-145) meq/L Potassium (3.5-5.1) meq/L Chloride (98-107) meq/L Carbon Dioxide (21.0-32.0) meq/L Anion Gap (5-15) meq/L BUN (7-18) mg/dL Creatinine (0.50-1.00) mg/dL Estimated GFR (>89) mL/min Random Glucose (74-106) mg/dL Osmolality (275-295) mosm/kg Calcium (8.5-10.1) mg/dL Magnesium (1.5-2.5) mg/dL Total Bilirubin (0.2-1.0) mg/dL AST (15-37) U/L ALT (10-53) U/L Alkaline Phosphatase (45-117) U/L Total Creatine Kinase (26-192) U/L Troponin I (0.02-0.05) ng/mL Total Protein (6.4-8.2) g/dL Albumin (3.4-5.0) g/dL Lipase (73-393) U/L Urine Color (Yellw/Straw) Urine Clarity (Clear) Urine pH (5.0-8.5) Ur Specific Waldron (1.002-1.035) Urine Protein (Neg-Trace) mg/dL Urine Glucose (UA) (Negative) mg/dL Urine Ketones (Negative) mg/dL Urine Occult Blood (Negative) Urine Nitrate (Negative) Urine Bilirubin (Negative) Urine Urobilinogen (Less than 2) mg/dL Ur Leukocyte Esterase (Negative) Urine WBC (0-5) /hpf Ur Squamous Epith Cells (0-5) /hpf Urine Bacteria (None) /hpf Urine Mucus (Occasional) /lpf Micro UA Comment Ur Microscopic Review Urine Culture Comments Urine Osmolality 343 (300-1300) mosm/kg Salicylates Less than 1.7 L (2.8-20.0) mg/dL Urine Opiates Screen Neg (Neg) Acetaminophen (10.0-30.0) mcg/mL Ur Barbiturates Screen Neg (Neg) Ur Amphetamines Screen Neg (Neg) U Benzodiazepines Scrn Neg (Neg) Urine Cocaine Screen Neg (Neg) U Cannabinoids Screen Neg (Neg) Serum Alcohol (0-5) mg/dL 05/15/18 Range/Units 05:14 WBC (4.0-11.0) th/mm3 RBC (4.00-5.30) mil/mm3 Hgb (11.6-15.3) gm/dL Hct (35.0-46.0) % MCV (80.0-100.0) fL MCH (27.0-34.0) pg MCHC (32.0-36.0) % RDW (11.6-17.2) % Plt Count (150-450) th/mm3 MPV (7.0-11.0) fL Prelim Diff (Auto) Neut % (Auto) (16.0-70.0) % Lymph % (Auto) (9.0-44.0) % Eaton % (Auto) (0.0-8.0) % Eos % (Auto) (0.0-4.0) % Baso % (Auto) (0.0-2.0) % Neut # (Auto) (1.8-7.7) th/mm3 Lymph # (Auto) (1.0-4.8) th/mm3 Eaton # (Auto) (0.0-0.9) th/mm3 Eos # (Auto) (0.0-0.4) th/mm3 Baso # (Auto) (0.0-0.2) th/mm3 WBC Differential Differential Comment PT (9.8-11.6) sec INR Ratio APTT (23.4-31.7) sec Sodium (136-145) meq/L Potassium (3.5-5.1) meq/L Chloride (98-107) meq/L Carbon Dioxide (21.0-32.0) meq/L Anion Gap (5-15) meq/L BUN (7-18) mg/dL Creatinine (0.50-1.00) mg/dL Estimated GFR (>89) mL/min Random Glucose (74-106) mg/dL Osmolality (275-295) mosm/kg Calcium (8.5-10.1) mg/dL Magnesium (1.5-2.5) mg/dL Total Bilirubin (0.2-1.0) mg/dL AST (15-37) U/L ALT (10-53) U/L Alkaline Phosphatase (45-117) U/L Total Creatine Kinase (26-192) U/L Troponin I (0.02-0.05) ng/mL Total Protein (6.4-8.2) g/dL Albumin (3.4-5.0) g/dL Lipase (73-393) U/L Urine Color Yellow (Yellw/Straw) Urine Clarity Clear (Clear) Urine pH 6.0 (5.0-8.5) Ur Specific Waldron 1.006 (1.002-1.035) Urine Protein Negative (Neg-Trace) mg/dL Urine Glucose (UA) Negative (Negative) mg/dL Urine Ketones Negative (Negative) mg/dL Urine Occult Blood Negative (Negative) Urine Nitrate Negative (Negative) Urine Bilirubin Negative (Negative) Urine Urobilinogen Less than 2 (Less than 2) mg/dL Ur Leukocyte Esterase Trace H (Negative) Urine WBC 2 (0-5) /hpf Ur Squamous Epith Cells <1 (0-5) /hpf Urine Bacteria Few H (None) /hpf Urine Mucus Few H (Occasional) /lpf Micro UA Comment Culture not ind Ur Microscopic Review Not Reportable Urine Culture Comments Culture not ind Urine Osmolality (300-1300) mosm/kg Salicylates (2.8-20.0) mg/dL Urine Opiates Screen (Neg) Acetaminophen (10.0-30.0) mcg/mL Ur Barbiturates Screen (Neg) Ur Amphetamines Screen (Neg) U Benzodiazepines Scrn (Neg) Urine Cocaine Screen (Neg) U Cannabinoids Screen (Neg) Serum Alcohol (0-5) mg/dL
--- NOTE | 2018-05-15 17:06 | ECG ---
Date Performed: 05/15/2018 Time Performed: 01:17:05 PTAGE: 23 years EKG: SINUS BRADYCARDIA BORDERLINE ECG Compared to PREVIOUS TRACING , rate slower DOCTOR: Solange Miranda Interpretating Date/Time 05/15/2018 17:04:57
--- NOTE | 2018-05-15 17:11 | ECG ---
Date Performed: 05/14/2018 Time Performed: 22:21:06 PTAGE: 23 years EKG: SINUS TACHYCARDIA LEFT ATRIAL ENLARGEMENT NONSPECIFIC T-WAVE ABNORMALITY ABNORMAL ECG PREVIOUS TRACING : 03/14/2017 00.15 Compared to previous tracing, rate faster DOCTOR: Solange Miranda Interpretating Date/Time 05/15/2018 17:11:01
[2018-05-15] MEDS: Senna/Docusate Sodium 8.6/50 MG Tablet PO SCH (20:49)
[2018-05-16 07:18] LABS: Anion Gap 7 meq/L (5-15); Blood Urea Nitrogen 16 mg/dL (7-18); Calcium 8.7 mg/dL (8.5-10.1); Carbon Dioxide 26.3 meq/L (21.0-32.0); Chloride 105 meq/L (98-107); Glomerular Filtration Rate Greater Than 89 mL/min (>89); Glucose,Random 83 mg/dL (74-106); Potassium 3.7 meq/L (3.5-5.1); Sodium 138 meq/L (136-145)
[2018-05-16 07:19] LABS: Cholesterol 186 mg/dL (120-200); Triglycerides 48 mg/dL (42-150)
[2018-05-16 07:21] LABS: Chol/HDL Ratio 3.13 Ratio; HDL Cholesterol 59.3 mg/dL (40.0-60.0); LDL Cholesterol,Calculated 117 mg/dL (0-99)
[2018-05-16] MEDS: Senna/Docusate Sodium 8.6/50 MG Tablet PO SCH ×2 (08:42→22:07)
[2018-05-16] MEDS ORDERED: ESCITALOPRAM OXALATE 20 MG PO SCH (09:00)
[2018-05-16] MEDS ORDERED: LORazepam 1 MG Tablet PO PRN (10:00)
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
[2018-05-16 13:31] LABS: Hemoglobin A1c 5.5 % (4.3-6.0)
[2018-05-17] MEDS: Senna/Docusate Sodium 8.6/50 MG Tablet PO SCH ×2 (09:26→20:34)
--- NOTE | 2018-05-17 12:16 | P.PNPSY ---
Subjective Remarks: Patient seen for follow-up, chart reviewed. Discussion with nursing staff reported that patient reported nightmares last evening stating that she usually have nightmares when she does not take her Lexapro. Patient had gone to groups yesterday. Patient was found lying in hospital bed noted to be somnolent stating that she is feeling tired and she had difficulty sleeping last evening due to nightmares. She states that she did not receive her mirtazapine although it was ordered. She states that her mood has been better feeling less depressed denying any suicide ideations today. She states having spoken to her parents which went well. She reports having difficulty with bowel movements today and the last time she had a problem was 3 days ago. Patient denies any perceptual disturbances or delusions at this time. Review of Systems All other systems reviewed negative except as stated in HPI Mental Status Examination Appearance: Appropriate, Well dressed/well groomed Consciousness: Alert Orientation: x4 Motor Activity: Normal gait Speech: Unremarkable Language: Adequate Fund of Knowledge: Adequate Attention and Concentration: Adequate Memory: Unremarkable Mood: Other ("Better") Affect: Sad Thought Process & Associations: Intact, Logical Thought Content: Appropriate Hallucination Type: None Delusion Type: None Suicidal Ideation: Yes (Denies today) Suicidal Plan: No Suicidal Intention: No Homicidal Ideation: No Homicidal Plan: No Homicidal Intention: No Insight: Fair Judgment: Impulsive Assessment and Plan - Assessment (1) MDD (major depressive disorder) Code(s): F32.9 - Major depressive disorder, single episode, unspecified Status : Acute - Plan Plan: Patient continued with depressed mood, denying suicidal use this morning. Patient had difficulty with sleep although patient did not receive mirtazapine last evening. We will continue current treatment. We will continue to monitor mood and behavior. Discharge planning in progress. Justification for Continued Inpatient Stay: At risk of further decompensation at lower level care.
[2018-05-17] MEDS: Mirtazapine 15 MG Tablet PO SCH ×2 (20:34→20:47)
[2018-05-18] MEDS: Senna/Docusate Sodium 8.6/50 MG Tablet PO SCH ×2 (08:53→20:13)
--- NOTE | 2018-05-18 14:08 | P.PNPSY ---
Subjective Remarks: Pt seen and discussed with staff. She was admitted under a BA due to OD on benadryl. Today she remains depressed but denies SI/HI. She has been compliant with psychiatric medications and denies side effects. She is embarrassed and feels guilty about suicide attempt. Sleep improved. Mental Status Examination Appearance: Appropriate, Well dressed/well groomed Consciousness: Alert Orientation: x4 Motor Activity: Normal gait Speech: Unremarkable Language: Adequate Fund of Knowledge: Adequate Attention and Concentration: Adequate Memory: Unremarkable Mood: Sad Affect: Sad Thought Process & Associations: Intact, Logical Thought Content: Appropriate Hallucination Type: None Delusion Type: None Suicidal Ideation: No (Denies today) Suicidal Plan: No Suicidal Intention: No Homicidal Ideation: No Homicidal Plan: No Homicidal Intention: No Insight: Fair Judgment: Impulsive Assessment and Plan - Assessment (1) MDD (major depressive disorder) Code(s): F32.9 - Major depressive disorder, single episode, unspecified Status : Acute - Plan Plan: Continue current tx plan Justification for Continued Inpatient Stay: monitoring for safety
[2018-05-18] MEDS: Mirtazapine 15 MG Tablet PO SCH (20:13)
[2018-05-19] MEDS: Senna/Docusate Sodium 8.6/50 MG Tablet PO SCH ×2 (08:08→20:23)
--- NOTE | 2018-05-19 10:24 | P.PNPSY ---
Subjective Remarks: Reviewed electronic record and discussed with nursing staff. Rounded with CHRIS Romano. Patient in her room in bed. She overdosed on Benadryl. Patient states that she has had a long hx of depression and is seeing a counselor at [facility] [place]. 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 She states that her grades are holding their own, but I suspect that she is having difficulty. She is on lexapro and feels that the medication does work. Denies SI/HI today. Review of Systems All other systems reviewed negative except as stated in HPI Mental Status Examination Appearance: Appropriate, Well dressed/well groomed Consciousness: Alert Orientation: x4 Motor Activity: Normal gait Speech: Unremarkable Language: Adequate Fund of Knowledge: Adequate Attention and Concentration: Adequate Memory: Unremarkable Mood: Sad Affect: Sad Thought Process & Associations: Intact, Logical Thought Content: Appropriate Hallucination Type: None Delusion Type: None Suicidal Ideation: No (Denies today) Suicidal Plan: No Suicidal Intention: No Homicidal Ideation: No Homicidal Plan: No Homicidal Intention: No Insight: Fair Judgment: Impulsive Assessment and Plan - Assessment (1) MDD (major depressive disorder) Code(s): F32.9 - Major depressive disorder, single episode, unspecified Status : Acute - Plan Plan: Continue current tx plan Justification for Continued Inpatient Stay: Moving patient to a less restrictive environment may result in her decompensation.
[2018-05-20] MEDS: Senna/Docusate Sodium 8.6/50 MG Tablet PO SCH ×3 (09:10→20:24)
--- NOTE | 2018-05-20 14:31 | P.PNPSY ---
Subjective Remarks: Patient seen for follow-up, chart reviewed. Discussion with nursing staff reported that patient over the weekend had Remeron discontinued due to eruption of rash. Patient continues to be somewhat seclusive but denying suicidal ideation. Patient was found in the room noted to be calm and cooperative. Patient states that she is feeling less depressed, mentions not having been able to tolerate the Remeron eruption or rash of upper extremity. Patient mentions having spoken to her family over the weekend and sounds supportive. Discussion having an alternative medication to provide as an adjunct to her depression regimen was reviewed which she agreed to start quetiapine 50 mg p.o. at bedtime with upward titration as needed. Patient denies any suicidal ideation at this time denies any perceptual disturbances or delusions. Review of Systems All other systems reviewed negative except as stated in HPI Mental Status Examination Appearance: Appropriate, Well dressed/well groomed Consciousness: Alert Orientation: x4 Motor Activity: Normal gait Speech: Unremarkable Language: Adequate Fund of Knowledge: Adequate Attention and Concentration: Adequate Memory: Unremarkable Mood: Sad (lessening) Affect: Sad (lessening) Thought Process & Associations: Intact, Logical Thought Content: Appropriate Hallucination Type: None Delusion Type: None Suicidal Ideation: No Suicidal Plan: No Suicidal Intention: No Homicidal Ideation: No Homicidal Plan: No Homicidal Intention: No Insight: Fair Judgment: Impulsive Assessment and Plan - Assessment (1) MDD (major depressive disorder) Code(s): F32.9 - Major depressive disorder, single episode, unspecified Status : Acute - Plan Plan: Patient this time reporting less depressed mood which the therapeutic milieu has contributed, but will continue to require an adjunct for her current treatment regimen for depression. Quetiapine was recommended to start 50 mg p.o. at bedtime with upward titration as needed, medication benefits/risks/ alternatives and side effects were reviewed with patient and agreed. We will continue Lexapro 20 mg p.o. daily. We will continue to monitor mood and behavior. If patient tolerates quetiapine well at this evening patient likely for discharge tomorrow to continue outpatient follow-up and treatment. Discharge planning in progress. Justification for Continued Inpatient Stay: At risk of further decompensation at lower level care.
[2018-05-20] MEDS ORDERED: QUEtiapine 100 MG Tablet PO SCH (21:00)
[2018-05-21] MEDS: Senna/Docusate Sodium 8.6/50 MG Tablet PO SCH (10:11)
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
== END 2018-05-21 15:07 | disposition home or self-care (01) ==
LOC: NEPC 21:53 → NEDA 05-15 15:05 → H260 05-15 16:18
PROVIDERS: ADMIT Student in an Organized Health Care Education/Training Program; ATTEND Student in an Organized Health Care Education/Training Program